=== PATIENT | female | born 1985 | race Caucasian/White ===

== ENCOUNTER 2018-05-12 12:09 | Outpatient (REF) | payer MEDICAID, SELFPAY ==
--- NOTE | 2018-05-12 11:30 | PAPFT_PTH ---
PATIENT: Philomena Romano LOC: [facility] U#:[id number] AGE/SX: 33/F ROOM: RE05/12/[address]: Katty Hutson NP : [id number] BED: DIS: 05/12/2018 SPEC #: [id number] RECD: 05/12/18 17:40 STATUS: WILMAN REKyrie #: [id number] PRAFUL: 05/12/18 11:[address]: Katty Hutson NP DEPT: [facility] Cytology RECD BY: Constance Barcenas ENTERED: 05/12/18 17:41 SP TYPE: PAPFT OTHR DR: Maximo Powell Tissues: 1 - CX/ENDOCX FOR PAP SMEARS Procedures: PAP THIN PREP/UVM Screening HPV DNA PROBE Comments: [id number]
[2018-05-13 16:36] LABS: Chlamydia Result Negative; GC Result Negative; Specimen Description SEE COMMENTS
== END 2018-05-12 12:29 ==
LOC: LBN 12:09
PROVIDERS: PCP Family Medicine; Visit Provider Nurse Practitioner Women's Health
DX: Z12.4 Encounter for screening for malignant neoplasm of cervix (principal); Z11.51 Encounter for screening for human papillomavirus (HPV); Z11.3 Encounter for screening for infections with a predominantly sexual mode of transmission
CPT/HCPCS: 87491; 87591; 88142; 87624

== ENCOUNTER 2018-09-28 06:53 | Emergency (ER) | payer MEDICAID, SELFPAY ==
[2018-09-28 07:01] VITALS: BP 110/68; PULSE 76; RESP 16; TEMP 36.6; O2SAT 99
--- NOTE | 2018-09-28 07:12 | W.ED.GENAD ---
Discharge Plan Disposition Patient Disposition: HOME Condition: Stable Discharge Details Chief Complaint: Orthopedic Clinical Impression: Overuse injury Primary Care Provider: Maximo Powell ED Provider: Declan Hutson Home Meds and New Rx's Prescriptions: No Action methadone 10 MG/ML concentrate 79 mg PO DAILY RF: 0 Discharge Instructions Additional Instructions: You can take 600mg ibuprofen every 6 hours for pain as needed if pain continues in a week see your primary care provider if you have fevers, redness spreading up the arm or severe worsening of pain return to the emergency department for reevaluation Stand Alone Forms: Work Release Medical Decision Making 33 yo female comes in with left wrist pain. She states the pain started after work last night where she was doing repetitive motion of twisting with the left hand. denies any trauma, no fevers, rashes. She has had medial wrist and hand pain since so came here. Has no obvious deformity, pain over medial wrist, no snuffbox tenderness, full rom of the wrist and hand with 2+ radial and ulnar pulses and cap refill less than 2 seconds. I suspect overuse injury from repetetive motion. Do not feel xrays indicated at this time given lack of trauma. No findings to suggest cellulitis or infected joint. Will place in splint for comfort and advised f/u with pcp if pain continues and return precautions given Differential Diagnosis strain,sprain, contusion, overuse HPI General Mode of arrival: ambulatory. Date/Time Provider Initiated Documentation: 09/28/18 07:06. Limitations to Documentation: no limitations. Information obtained by: patient. History of Present Illness 33 year old F presents to the emergency department with the chief complaint of left wrist pain, described as moderate, with intensity rated at 4. Quality is described as aching (throbbing), and is localized to the left and upper extremity. No relieving factors improve symptom(s), No exacerbating factors reported . Patient notes no other symptoms.. Patient did receive the following treatments prior to arrival, none Related Data Home Medications Medication Instructions Recorded Confirmed methadone 79 mg PO DAILY 08/15/13 05/12/18 Allergies Allergy/AdvReac Type Severity Reaction Status Date / Time acetaminophen [From Tylenol] Allergy unknown as Unverified 09/28/18 07:04 child General Stated Complaint: Orthopedic ORAL: 4 Review of Systems Review of Systems All systems reviewed & are unremarkable except as noted in HPI and below Constitutional Denies chills, Denies fever(s) and Denies weakness Eyes Denies loss of vision ENT Denies change in voice Cardiovascular Denies chest pain and Denies dyspnea Respiratory Denies cough and Denies dyspnea Gastrointestinal Denies abdominal pain, Denies nausea and Denies vomiting Genitourinary Denies dysuria Musculoskeletal Denies joint swelling Integumentary/Breasts Denies rash Neurologic Denies loss of vision and Denies weakness [facility] Medical History Methadone maintenance therapy patient (Acute) History of opioid abuse (Acute) Kidney calculus (Chronic) Surgical History History of tubal ligation (Chronic) Family History Mother Diabetes Pacemaker Social History Smoking and Tabacco status: Current every day alcohol intake: never substance use type: former substance user and other details: methadone clinic Female Reproductive History Menstrual Duration of menses: 6-7 days control method: permanent sterilization (2007) History History 2 Para 2 Hx # Term Pregnancies Multiple births Hx # Pregnancies Ectopic pregnancies AB induced Hx Number of Living Children AB spontaneous Exam Const General: no acute distress Orientation: alert HENMT Head: normal to inspection Ears: external ears normal General nose exam: external nose normal Mouth: moist mucous membranes Eyes General: appearance normal, both eyes and all related structures Neck Neck: normal visual inspection Resp Effort & Inspection: normal respiratory effort and able to speak in complete sentences Cardio Rate: regular rate Skin General skin exam: no rashes or lesions noted Neuro General: alert and oriented x3 Extrem General: normal to inspection Psych Mental Status: mental status grossly normal Course Vital Signs Temperature 36.6 C 09/28/18 07:01 Pulse 76 09/28/18 07:01 Respiratory Rate 16 09/28/18 07:01 Blood Pressure 110/68 09/28/18 07:01 Pulse Oximetry 99 09/28/18 07:01 Temperature 36.6 C 09/28/18 07:01 Temperature Source Skin 09/28/18 07:01 Pulse 76 09/28/18 07:01 Respiratory Rate 16 09/28/18 07:01 Respiratory Effort Non-Labored 09/28/18 07:01 Blood Pressure 110/68 09/28/18 07:01 Blood Pressure Position Sitting 09/28/18 07:01 Pulse Oximetry 99 09/28/18 07:01 Oxygen Delivery Method Room Air 09/28/18 07:01 Oxygen Flow Rate 0 09/28/18 07:01 Pain Level 7 09/28/18 07:05
--- NOTE | 2018-09-29 15:42 | NUR.NOTE ---
Nursing Note: Patient called stating that her employer needs to have a form filled out stating what she will be able to do when she returns to work. I consulted with Brooks Miguel NP in the ED and told the patient that we do not do these forms in the ED. She was given the phone number for [facility] and [facility]. Arely Ramey.
== END 2018-09-28 07:21 | disposition home or self-care (01) ==
PROVIDERS: Emergency Provider Emergency Medicine; PCP Family Medicine
DX: M25.532 Pain in left wrist (principal); X50.3XXA Overexertion from repetitive movements, initial encounter
CPT/HCPCS: 29125; 99283; 99282; L3908

== ENCOUNTER 2019-07-21 06:54 | Emergency (ER) | payer MEDICAID, SELFPAY ==
[2019-07-21 06:58] VITALS: BP 112/80; PULSE 62; RESP 16; TEMP 36.8; O2SAT 96
--- NOTE | 2019-07-21 07:16 | ED.GENADUL_ITS ---
Discharge Plan Disposition Patient Disposition: HOME Condition: Good Discharge Details Chief Complaint: DentalOral Clinical Impression: Dental infection, Acute gingivitis Primary Care Provider: None,None ED Provider: Yinka Suarez and New Rx's Prescriptions: New chlorhexidine gluconate 0.12 % mouthwash 15 ml MM BID Qty: 600 RF: 0 benzocaine 20 % gel 1 applic MM QID PRN (Reason: mouth irritation) Qty: 30 RF: 0 amoxicillin-pot clavulanate 875-125 mg tablet 1 tab PO BID Qty: 20 RF: 0 Continued methadone 10 MG/ML concentrate 79 mg PO DAILY RF: 0 Discharge Instructions Instructions: Dental Abscess (ED) Additional Instructions: Use ibuprofen and benzocaine as needed to help with pain. Chlorhexidine rinses as directed. Augmentin twice a day. Follow-up with dentistry, referred to sheet provided. Return to ED for high fever, facial pain swelling, difficulty breathing, inability to swallow. Medical Decision Making Patient with significant dental decay and gingival loss with necrotic tissue. Needs to see a dentist. In the meantime we will start on chlorhexidine rinses and Augmentin. Continue ibuprofen and mucosal benzocaine for pain relief. Return to ED for high fever, increased facial pain or swelling, difficulty breathing or inability to swallow. HPI General Mode of arrival: ambulatory . Date/Time Provider Initiated Documentation: 07/21/19 07:15 . Limitations to Documentation: no limitations . Information obtained by: patient and RN notes reviewed . HPI Narrative: Patient presents with lower dental pain which has been bothering her for the last 4 days. She has been using Orajel and ibuprofen. Pain continues to get worse. She only has the lower front teeth and these are severely decayed. There is no facial pain or swelling. There is no fever. No difficulty swallowing or breathing. Related Data Home Medications Medication Instructions Recorded Confirmed methadone 79 mg PO DAILY 08/15/13 07/21/19 amoxicillin-pot clavulanate 1 tab PO BID #20 tab 07/21/19 benzocaine 1 applic MM QID PRN #30 gm 07/21/19 chlorhexidine gluconate 15 ml MM BID #600 ml 07/21/19 Previous Rx's Medication Instructions Recorded amoxicillin-pot clavulanate 1 tab PO BID #20 tab 07/21/19 benzocaine 1 applic MM QID PRN #30 gm 07/21/19 chlorhexidine gluconate 15 ml MM BID #600 ml 07/21/19 Allergies Allergy/AdvReac Type Severity Reaction Status Date / Time acetaminophen [From Tylenol] Allergy unknown as Unverified 07/21/19 07:00 child General Stated Complaint: DentalOral ORAL: 5 Review of Systems Constitutional Constitutional: Denies fever(s) ENT Ears, Nose, Mouth, and Throat: Reports dental pain and Denies lip swelling Allergic/Immunologic Allergic/Immunologic: Denies lip swelling [facility] Medical History History of opioid abuse (Acute) Kidney calculus (Chronic) Methadone maintenance therapy patient (Acute) Surgical History History of tubal ligation (Chronic) Social History Smoking/Tobacco Use Status: Current every day Alcohol Intake: never Drug use: Current Sobriety Substance use type: former substance user and other Details: methadone clinic Do you feel safe in your relationship?: Yes Female Reproductive History Menstrual Duration of menses: 6-7 days control method: permanent sterilization (2007) History History 2 Para 2 Hx # Term Pregnancies Multiple births Hx # Pregnancies Ectopic pregnancies AB induced Hx Number of Living Children AB spontaneous Exam Const General: cooperative and comfortable Orientation: alert and oriented x3 HENMT Face and sinus: normal facial exam Mouth: lip normal, no drooling and no trismus Teeth and gingiva: gingiva abnormal and poor dentition Other: Upper dentures in place. Lower molars/premolars gone. Lower frontal teeth severely decayed with extensive gingival recession/erythema/necrotic tissue. Course Vital Signs Vital signs: Vital Signs Temperature 98.2 F 07/21/19 06:58 Pulse 62 07/21/19 06:58 Respiratory Rate 16 07/21/19 06:58 Blood Pressure 112/80 07/21/19 06:58 Pulse Oximetry 96 07/21/19 06:58 Temperature 98.2 F 07/21/19 06:58 Temperature Source Skin 07/21/19 06:58 Pulse 62 07/21/19 06:58 Respiratory Rate 16 07/21/19 06:58 Respiratory Effort 07/21/19 07:01 Blood Pressure 112/80 07/21/19 06:58 Blood Pressure Position Sitting 07/21/19 06:58 Pulse Oximetry 96 07/21/19 06:58 Oxygen Delivery Method Room Air 07/21/19 06:58 Oxygen Flow Rate 0 07/21/19 06:58 Pain Level 9 07/21/19 07:01
[2019-07-21] MEDS: Benzocaine 20% Gel 30 GM JAR MM (07:31)
== END 2019-07-21 07:49 | disposition home or self-care (01) ==
PROVIDERS: Emergency Provider Emergency Medicine
DX: R68.84 Jaw pain (principal); K05.00 Acute gingivitis, plaque induced; K04.7 Periapical abscess without sinus
CPT/HCPCS: 99283

== ENCOUNTER 2020-10-18 08:25 | Emergency (ER) | payer MEDICAID, SELFPAY ==
[2020-10-18 08:28] VITALS: BP 108/69; PULSE 93; RESP 20; TEMP 36.8; O2SAT 97
--- NOTE | 2020-10-18 08:45 | DI.RAD_ITS ---
EXAM: XR KNEE LT 4V+ CLINICAL HISTORY: fall/pain TECHNIQUE: COMPARISON: No exams were available for comparison FINDINGS: Five views were obtained. The lateral view shows an apparent joint effusion. No fracture is identif ied. IMPRESSION: RADIATION DOSE DELIVERED: Total DLP
--- NOTE | 2020-10-18 08:45 | DI.RAD_ITS ---
EXAM: XR ANKLE LT COMPLETE CLINICAL HISTORY: fall/twist TECHNIQUE: COMPARISON: No exams were available for comparison FINDINGS: Three views were obtained. The ankle mortise is well maintained. There is no evidence of acute frac ture or dislocation. IMPRESSION: RADIATION DOSE DELIVERED: Total DLP
--- NOTE | 2020-10-18 08:51 | W.ED.GENAD ---
Discharge Plan Disposition Patient Disposition: HOME Condition: Stable Discharge Details Clinical Impression: Ankle sprain Primary Care Provider: None,None ED Provider: Vlad Burgess Home Meds and New Rx's Prescriptions: New ibuprofen 800 mg tablet 800 mg PO TID PRNQty: 20 RF: 0 Continued methadone 10 MG/ML concentrate 95 mg PO DAILY RF: 0 Discontinued ibuprofen 400 mg Tablet 400 mg PO Q6H PRNRF: 0 Discharge Instructions Instructions: Ankle Sprain (ED) Additional Instructions: X-ray of ankle and knee are unremarkable. Wear walking boot and use crutches as needed, advance activity as tolerated. Ibuprofen as directed. Rest, elevate, cool compresses every 2 hours for 20 minutes. Please watch for new or worsening symptoms and return to the ER for any concerns. I do recommend following up with your primary care provider in the next 7-10 days for reevaluation. If symptoms are to persist outpatient referral to orthopedics may be required. Medical Decision Making 35-year-old female presents for left lower leg injury that occurred yesterday evening. She reports primarily left ankle pain but does report that the pain radiates up to her knee. Will obtain x-ray of her ankle but also of her need to rule out any potential tibial plateau fracture although low suspicion. Higher on the differential would be ankle sprain versus fracture. X-ray of ankle and knee read by me is unremarkable, confirmed by radiology. Discussed x-ray findings with patient. Discussed options. She is requesting something for pain and I prescribed her ibuprofen to go home. We will provide her with 60 IM Toradol, a tall walking boot and crutches. Patient comfortable with this plan and has no additional questions or concerns. Medical Records Medical records reviewed: Yes I reviewed the patient's medical records. Imaging Data Radiologic Study: Attestation: I personally reviewed and interpreted this imaging study as follows: Imaging: X-Ray Radiologist's impression: X-ray of left ankle and knee read by radiology as negative HPI General Mode of arrival: wheelchair. Date/Time Provider Initiated Documentation: 10/18/20 08:48. Limitations to Documentation: no limitations. Information obtained by: patient. HPI Narrative: This is a 35-year-old female, past medical history that includes history of opiate abuse, currently taking methadone, did receive her 95 mg just prior to arrival. She states that yesterday evening she was walking her dog down a hill, her dog pulled, causing her to fall. In the process she twisted her left ankle, reports that she needed to crawl back home and was unable to bear any weight. Patient reports that the pain is moderate to severe at rest, worse with movement or attempting to bear weight. She did take ibuprofen. She denies any other injuries. She denies striking her head, headache, LOC, neck pain, chest pain, abdominal pain, nausea, vomiting, numbness, tingling, weakness. She reports that the pain in her left ankle does radiate up to her knee although she is unable to reproduce pain by bending her knee or palpating her knee. She denies any pain in her foot. She denies any symptoms prior to the fall. Related Data Home Medications Medication Instructions Recorded Confirmed methadone 95 mg PO DAILY 08/15/13 10/18/20 ibuprofen 800 mg PO TID PRN #20 tab 10/18/20 Previous Rx's Medication Instructions Recorded ibuprofen 800 mg PO TID PRN #20 tab 10/18/20 Allergies Allergy/AdvReac Type Severity Reaction Status Date / Time acetaminophen [From Tylenol] Allergy unknown as Unverified 10/18/20 08:33 child General Stated Complaint: Orthopedic ORAL: 4 Review of Systems Constitutional Constitutional: Denies headache(s) and Denies weakness ENT Ears, Nose, Mouth, and Throat: Denies headache(s) Cardiovascular Cardiovascular: Denies chest pain Gastrointestinal Gastrointestinal: Denies abdominal pain, Denies nausea and Denies vomiting Musculoskeletal Musculoskeletal: Reports arthralgias, Reports joint swelling, Denies numbness, Reports stiffness and Denies tingling Integumentary/Breasts Skin/Breast: Denies erythema Neurologic Neurologic: Denies headache(s), Denies numbness, Denies tingling and Denies weakness [facility] Medical History (Updated 10/18/20 @ 09:52 by CATRACHITO Munoz) History of opioid abuse Kidney calculus Methadone maintenance therapy patient Surgical History History of tubal ligation Family History Mother , [place] Diabetes Pacemaker Social History Smoking/Tobacco Use Status: Current every day Tobacco Type: cigarettes Smoking risk assessment performed?: Yes Alcohol Intake: never Drug use: Current Sobriety Substance use type: former substance user and other Details: methadone clinic Do you feel safe at home: Yes Do you feel safe in your relationship?: Yes Female Reproductive History Menstrual Duration of menses: 6-7 days control method: permanent sterilization (2007) History History 2 Para 2 Hx # Term Pregnancies Multiple births Hx # Pregnancies Ectopic pregnancies AB induced Hx Number of Living Children AB spontaneous Exam Const General: cooperative, healthy appearing, comfortable and no acute distress Orientation: alert, awake and oriented x3 HENMT Head: normal to inspection, normocephalic and atraumatic Eyes General: appearance normal, both eyes and all related structures Conjunctivae: conjunctivae normal Neck Neck: normal visual inspection, trachea midline and supple Resp Effort & Inspection: normal respiratory effort and able to speak in complete sentences Cardio Rate: regular rate Rhythm: regular rhythm Skin General skin exam: no rashes or lesions noted Neuro General: patient alert, patient awake, patient oriented x3, moves all extremities and no focal motor deficits Cognition: normal cognition Speech: speech normal Motor: muscle tone normal throughout Sensory Exam: no sensory deficits noted Extrem General: capillary refill normal Right upper extremity: normal to inspection and full ROM Left upper extremity: normal to inspection and full ROM Right lower extremity: normal to inspection, full ROM and normal capillary refill Left lower extremity: normal capillary refill, hip/thigh Details: normal to inspection and normal ROM; no tenderness and no swelling, knee Details: normal to inspection and normal ROM; no tenderness and no swelling, lower leg Details: normal to inspection, ankle Details: tenderness, swelling, abnormal ROM and ecchymosis; no crepitus and foot Details: normal capillary refill, abnormal to inspection, toes with normal ROM and ecchymosis Other: Left ankle with diffuse lateral swelling and tenderness. This area is also associate with ecchymosis that extends to the dorsal aspect of the proximal foot. Skin is intact. Neuro, vascular, tendon intact. No obvious deformity. Perkins sign is normal. Patient is able to partly plantar and dorsiflex the foot however limited range of motion in all directions secondary to discomfort Psych Appearance: grossly normal Mental Status: mental status grossly normal Course Vital Signs Vital signs: Vital Signs Temperature 36.8 C 10/18/20 08:28 Pulse 93 H 10/18/20 08:28 Respiratory Rate 20 10/18/20 08:28 Blood Pressure 108/69 10/18/20 08:28 Pulse Oximetry 97 10/18/20 08:28 Temperature 36.8 C 10/18/20 08:28 Temperature Source Skin 10/18/20 08:28 Pulse 93 H 10/18/20 08:28 Respiratory Rate 20 10/18/20 08:28 Respiratory Effort Non-Labored 10/18/20 08:35 Blood Pressure 108/69 10/18/20 08:28 Blood Pressure Position Sitting 10/18/20 08:28 Pulse Oximetry 97 10/18/20 08:28 Oxygen Delivery Method Room Air 10/18/20 08:28 Oxygen Flow Rate 0 10/18/20 08:28 Pain Level 10 10/18/20 08:28
[2020-10-18] MEDS: Ketorolac 60 MG/2 ML VIAL IM (09:48)
[2020-10-18 10:13] VITALS: BP 97/52; PULSE 68; RESP 18; O2SAT 94
== END 2020-10-18 10:47 | disposition home or self-care (01) ==
PROVIDERS: Emergency Provider Physician Assistant
DX: S93.492A Sprain of other ligament of left ankle, initial encounter (principal); M25.562 Pain in left knee; W17.81XA Fall down embankment (hill), initial encounter; X50.9XXA Other and unspecified overexertion or strenuous movements or postures, initial encounter; Y93.K1 Activity, walking an animal
CPT/HCPCS: 29515; 96372; 99284; 73564; 73610; J1885

== ENCOUNTER 2022-07-16 09:00 | Emergency (ER) | payer MEDICAID, SELFPAY ==
[2022-07-16] VITALS (9 sets, daily range): BP systolic 87–155; BP diastolic 38–133; PULSE 49–76; RESP 16; TEMP 36.4; O2SAT 93–99
--- NOTE | 2022-07-16 09:07 | ED.GENADUL_ITS ---
Discharge Plan Disposition Patient Disposition: Home Condition: Improving Discharge Details Clinical Impression: Walking pneumonia, Renal colic on left side, Extravasation of intravenous contrast medium Primary Care Provider: None,None ED Provider: Hector Salguero Home Meds and New Rx's Prescriptions: New amoxicillin-pot clavulanate 875-125 mg tablet 1 tab PO BID 10 Days Qty: 20 0RF Continued methadone 10 MG/ML concentrate 60 mg PO DAILY ibuprofen 800 mg tablet 800 mg PO TID PRNQty: 20 0RF Discharge Instructions Instructions: Renal Colic (ED) Additional Instructions: Please follow-up with your primary care doctor in [facility] for recheck. Our care managers will work to get you an appointment. As we discussed, there was a question of very small pancreatic cyst in the tail of the pancreas for which it is recommended you have a follow-up CAT scan or MRI performed in the next 6 months. Take antibiotics as prescribed. As we discussed, return if you have persistent discomfort, develop shortness of breath or any other acute concerns. A small pulmonary embolism could not be ruled out due to the lack of adequate contrast administered during ear CT scan as we discussed. Apply ice to area of left arm to reduce discomfort. Rest today. Return if you develop a fever, redness to the left arm, or any other acute concern. Medical Decision Making 37-year-old female presents from home with 2 days of left flank pain that seems to radiate to her abdomen. She also describes some mild increase the pain with deep breath. She does not have chest pain or shortness of breath. No leg pain or swelling. She has a history of previous kidney stones. She is afebrile, pleasant and well-appearing. Exam reveals left flank and left upper quadrant tenderness peer differential diagnosis includes renal colic, py elonephritis, must consider PE. Patient referred for laboratory testing, given parenteral analgesia. Her white blood cell count is 7, hematocrit 46, platelets 291. D-dimer elevated at 1414. BUN 13, creatinine 0.7. Urinalysis with blood and white blood cells present. Patient referred for CT imaging. Given the elevated D-dimer we had discussed contrast-enhanced study including chest images. While in the CT suite patient had extravasation of contrast into her left humerus. This was confirmed by humerus XR. Cold compress was placed to area. Patient subsequently declined further IV contrast-enhanced studies. She was referred for a noncontrast renal colic CT; this notes infiltrate left lung base. There is note of renal lithiasis. See the formal report. Patient improved and wishes to follow-up with her primary care in [place]. We will treat her for occult pneumonia. She is stable and improving. We discussed the limits of evaluation given her reluctance to have repeat CT imaging with contrast; she will return if not improving. HPI General Mode of arrival: ambulatory . Date/Time Provider Initiated Documentation: 07/16/22 09:00 . Limitations to Documentation: no limitations . Information obtained by: patient . History of Present Illness 37 year old F presents to the emergency department with the chief complaint of Left flank pain since yesterday, described as moderate and similar to prior episodes, Quality is described as dull and constant, Patient abdomen. Patient started experiencing this hour(s) and it has been constant. No relieving factors improve symptom(s), No exacerbating factors reported . Patient notes denies fever/chills, rash and weakness. Patient did receive the following treatments prior to arrival, none Related Data Home Medications Medication Instructions Recorded Confirmed methadone 10 mg/mL oral concentrate 60 mg PO DAILY 08/15/13 07/16/22 ibuprofen 800 mg tablet 800 mg PO TID PRN #20 tabs 10/18/20 07/16/22 amoxicillin 875 mg-potassium 1 tab PO BID 10 days #20 tabs 07/16/22 clavulanate 125 mg tablet Previous Rx's Medication Instructions Recorded ibuprofen 800 mg tablet 800 mg PO TID PRN #20 tabs 10/18/20 amoxicillin 875 mg-potassium 1 tab PO BID 10 days #20 tabs 07/16/22 clavulanate 125 mg tablet Allergies Allergy/AdvReac Type Severity Reaction Status Date / Time acetaminophen [From Tylenol] Allergy unknown as Unverified 07/16/22 09:10 child General ORAL: 4 Review of Systems Narrative: Continues on methadone maintenance, no recent illness, no fall or injury, denies rash. 8 systems were reviewed and otherwise negative PFSH All Active Problems (Updated 07/16/22 @ 13:02 by Hector Salguero MD) Ankle sprain (Acute) Walking pneumonia (Acute) Renal colic on left side (Acute) Extravasation of intravenous contrast medium (Acute) Methadone maintenance therapy patient (Acute) History of opioid abuse (Acute) Medical History (Updated 12/29/22 @ 13:02 by Hector Salguero MD) Kidney calculus Surgical History History of tubal ligation Family History Mother , [place] Diabetes Pacemaker Social History Smoking/Tobacco Use Status: Current every day Tobacco Type: cigarettes Smoking risk assessment performed?: Yes Alcohol Intake: never Drug use: Current Sobriety Substance use type: former substance user and other Details: methadone clinic Do you feel safe at home: Yes Do you feel safe in your relationship?: Yes Female Reproductive History Menstrual Duration of menses: 6-7 days control method: permanent sterilization (2007) History History 2 Para 2 Hx # Term Pregnancies Multiple births Hx # Pregnancies Ectopic pregnancies AB induced Hx Number of Living Children AB spontaneous Exam Narrative Exam Narrative: GEN: awake, alert, oriented 3. Pleasant, well groomed, interactive. HEAD: Normocephalic, atraumatic ENT: Mucous membranes moist, oropharynx unremarkable, External ear exam unremarkable EYES: PERRL, EOMI NECK: Full ROM, no JORGE, no menigismus CHEST/RESP: Nontender, clear to auscultation bilateral, no wheeze/rhonchi/rales CARDIOVASCULAR: RRR, no murmur, rub severiano. 2+ Rad pulse bilateral ABDOMEN: Soft, left upper quadrant tender without rebound or guarding, no mass. +Bowel sounds, left flank tender to percussion EXT: Full ROM, no edema, no rash Neuro: Grossly normal neurologic exam, conversant, interactive. Psych: Speech fluent, thoughts congruent, affect normal
[2022-07-16 09:18] LABS: Bilirubin Negative (Negative); Blood Trace-lysed (Negative); Clarity Clear (Clear); Glucose Negative (Negative); Ketones Negative (Negative); Leukocyte Esterase Small (Negative); Nitrite Negative (Negative); Specific Gravity >= 1.030 (1.005-1.025); Urobilinogen 0.2 EU/dL (Up TO 0.2)
[2022-07-16 09:24] LABS: Bacteria Moderate HPF (Negative); C & S Indicated? Yes; Casts Negative LPF (Negative); Crystals Negative HPF (Negative); Epithelial Cells Rare HPF (Negative); Mucus Negative (Negative); Other Cells Negative (Negative)
[2022-07-16] MEDS: Ketorolac 15 MG/ML VIAL IVP (10:07)
[2022-07-16] MEDS: Normal Saline 1,000 ML 1000 ML IV (10:07)
[2022-07-16 10:16] LABS: Abs Immature Grans 0.03 10^3/uL (0.0-0.06); Absolute Basophil Count 0.04 10^3/uL (0.0-0.2); Absolute Eosinophil Count 0.76 10^3/uL (0.0-0.7); Absolute Lymphocyte Count 1.84 10^3/uL (1.2-3.4); Absolute Monocyte Count 0.53 10^3/uL (0.1-0.8); Absolute Neutrophil Count 4.69 10^3/uL (1.2-6.7); Basophils % 0.5; Eosinophils % 9.6; HCT 46.4 % (36.0-46.0); HGB 14.8 g/dL (11.2-15.7); Immature Grans % 0.4; Lymphocytes % 23.3; MCH 26.9 pg (27.0-33.0); MCHC 31.9 % (32.0-36.0); MCV 84 fL (80-95); MPV 10.1 fL (8.0-11.0); Monocytes % 6.7; Neutrophils % 59.5; Platelet Count 291 10^3/uL (130-400); RBC 5.51 10^6/uL (3.93-5.22); RDW 13.4 % (11.7-14.6); RDW-SD 41.6 fL; WBC 7.89 10^3/uL (4.4-10.8)
[2022-07-16 10:34] LABS: ALT 34 U/L (14-59); AST 24 U/L (15-37); Albumin 3.9 g/dL (3.4-5.0); Alkaline Phosphatase 129 U/L (46-116); Anion Gap 5.1 mmol/L (3-11); BUN 13 mg/dL (7-18); Bilirubin, Total 0.2 mg/dL (0.2-1.0); CO2 32.9 mmol/L (21.0-32.0); CREATININE 0.7 mg/dL (0.55-1.02); Calcium 9.2 mg/dL (8.5-10.1); Chloride 99 mmol/L (98-107); Estimated GFR 112.75 (mL/min/1.73m2); Glucose 83 mg/dL (74-106); Potassium 3.8 mmol/L (3.5-5.1); Sodium 137 mmol/L (136-145); Total Protein 9.2 g/dL (6.4-8.2)
[2022-07-16 10:43] LABS: D-Dimer 1414 ng/mlFEU (<500)
[2022-07-16] MEDS: HYDROmorphone 2 MG/ML SYR 1 MG IVP (11:24)
--- NOTE | 2022-07-16 11:30 | DI.RAD_ITS ---
Exam(s) XR HUMERUS LT EXAM: XR HUMERUS LT CLINICAL HISTORY: s/p infiltration pain. TECHNIQUE: 2D digital imaging was performed. COMPARISON: CR RIGHT FOREARM from 03/06/2013 FINDINGS: Single view: There is a prominent amount of extravasated intravenous contrast in the upper left arm between the el bow level and axilla. IMPRESSION: As above. Result called by myself to the ER physician DATA REPOSITORY: RADIATION DOSE DELIVERED:
[2022-07-16] MEDS: oxyCODONE 10 MG TAB PO (12:07)
--- NOTE | 2022-07-16 12:35 | DI.CT_ITS ---
Exam(s) CT RENAL COLIC WO EXAM: CT RENAL COLIC WO CLINICAL HISTORY: L flank pain. TECHNIQUE: Imaging Protocol: Axial computed tomography images with coronal and sagittal reformatted images were created and reviewed CONTRAST MATERIAL: Intravenous: none Oral: None COMPARISON: CT CT CHEST PE ABD PELVIS W from 07/16/2022 FINDINGS: VISUALIZED LUNG BASES: Mild infiltrate noted in the posterior basal segment of the left lower lobe an d milder infiltrate in the posterior basal segment of the right lower lobe.zx no ground-glass infiltr ates.. ABDOMEN: There is no ascites. LIVER: There are no obvious focal hepatic lesions evident of this noninfused study. GALLBLADDER/BILIARY: Gallbladder is not seen and presumed to be surgically absent. CBD diameter is p rominent, measuring 1 cm. There is a small calcification in what appears to be the duodenum or duode nal wall at this level, this measuring 3 millimeters. Cannot exclude the possibility of tiny gallsto ne in the duodenal wall at this level. PANCREAS: There is no mass in the pancreatic head nor dilatation pancreatic duct. There is, however, a subtle hypodense area in the pancreatic tail region measuring 8 x 5 millimeters, this at the junct ion of the body and tail the pancreas (series 2/image 43). Pancreatic duct is not dilated. There is no peripancreatic fluid. SPLEEN: Spleen size is upper normal. No obvious intrasplenic masses. ADRENALS: There are no significant adrenal masses. KIDNEYS:There is a benign cyst in the lateral cortex of the left kidney which measures 1.5 x 1.5 cm. Another slightly smaller cyst is seen in the anterior cortex of the left kidney. Smaller cyst in th e right kidney. No solid renal masses. No solid renal masses. It is difficult to determine if ther e calculi in the calices due to the fact that there is some excreted IV contrast in both kidneys. Ne vertheless, there is no hydronephrosis nor hydroureter on either side. No obvious abnormality in the urinary bladder.. ABDOMINAL AORTA: Abdominal aorta is not enlarged. LYMPH NODES: There is no retroperitoneal nor paraaortic adenopathy. ABDOMINAL WALL: No evidence of significant anterior abdominal wall nor inguinal hernia. GI: There is no evidence of bowel obstruction, free air, nor abscess. PELVIS: LYMPH NODES: There is no intrapelvic nor inguinal adenopathy. GI: No evidence of appendicitis.No evidence of sigmoid diverticulitis. URINARY BLADDER: No calculi nor obvious masses evident REPRODUCTIVE: Uterus size normal. Ovaries are not identified as independent structures. No abnormal adnexal masses. No free fluid in the pelvis. OSSEOUS: No significant osseous lesions. No fractures. The sacroiliac joints appear unremarkable. IMPRESSION: 1. Gallbladder is not seen and presumed to be surgically absent. The CBD is dilated measuring 1 cm. There is no mass the pancreatic head but there is a small calcific density in the duodenum at this l evel, possibly recently passed 3 millimeter gallstone. Correlation with blood work recommended. 2. Subtle hypodense area at the junction of the body and tail the pancreas, possibly significant. Re commend follow-up pancreatic protocol MRI/MRCP. 3. Benign renal cysts, largest measuring 1.5 x 1.5 cm. No solid renal masses. Although there are no obvious calculi, please note that the IV contrast secreted at the level of the renal calices and inf undibuli prevent visualization of small calculi. 4. no abnormal masses in the pelvis. Uterus normal size. Ovaries not identified as separate from th e opacified bowel loops in the pelvis. Mild infiltrate noted in both lung bases. Left slightly more so than right. Findings discussed with ER physician RADIATION DOSE DELIVERED: 917.48mGy.cm Total DLP DATA REPOSITORY: All CT scans at this facility are submitted to the National Radiology Data Registry (NRDR) Dose Index Registry (DIR) with the [employer] ([employer]). RADIATION OPTIMIZATION: All CT scans at this facility use at least one of these dose optimization te chniques: automated exposure control; mA and/or kV adjustment per patient size (includes targeted exa ms where dose is matched to clinical indication); or iterative reconstruction.
--- NOTE | 2022-07-16 15:26 | NUR.NOTE ---
Nursing Note: Referral given to Care management to PCP for follow up pneumonia in 1 to 2 weeks.
--- NOTE | 2022-07-16 15:57 | CMACTNOTE_ITS ---
- If Service Date Differs Date of service: 07/16/22 Time of Service: 15:57 Care Management Activity Note Philomena is seen in the ED for walking pneumonia. At the request of ED provider, BEN contacts the [facility] where Philomena receives her care ([facility], [address] [place] [address], tel. [phone], fax [phone]) and requests they outreach directly to Philomena to schedule a follow up appointment in 1 - 2 weeks. She has Medicaid for insurance.
--- NOTE | 2022-07-16 15:57 | PDOC.ERCMACT ---
- If Service Date Differs Date of service: 07/16/22 Time of Service: 15:57 Care Management Activity Note Philomena is seen in the ED for walking pneumonia. At the request of ED provider, BEN contacts the [facility] where Philomena receives her care ([facility], [address] [place] [address], tel. [phone], fax [phone]) and requests they outreach directly to Philomena to schedule a follow up appointment in 1 - 2 weeks. She has Medicaid for insurance.
== END 2022-07-16 13:20 | disposition home or self-care (01) ==
PROVIDERS: Emergency Provider Emergency Medicine
DX: N23 Unspecified renal colic (principal); J18.9 Pneumonia, unspecified organism; T80.818A Extravasation of other vesicant agent, initial encounter; R79.1 Abnormal coagulation profile; R91.8 Other nonspecific abnormal finding of lung field; Z98.51 Tubal ligation status; Z87.442 Personal history of urinary calculi
CPT/HCPCS: 36415; 80053; 81025; 87077; 96361; 96374; 96375; 99284; 73060; 74176; 81003; 81015; 85025; 85379; 87086; 87186; J1170; J1885; J3490

== ENCOUNTER 2022-08-30 21:43 | Emergency (ER) | payer MEDICAID, SELFPAY ==
[2022-08-30 22:03] VITALS: BP 103/75; PULSE 108; RESP 20; TEMP 36.8; O2SAT 97
--- NOTE | 2022-08-30 22:24 | ED.GENADUL_ITS ---
Discharge Plan Disposition Patient Disposition: Home Condition: Stable Discharge Details Clinical Impression: Nausea & vomiting Primary Care Provider: None,None ED Provider: Declan Hutson Home Meds and New Rx's Prescriptions: New ondansetron 4 mg tablet,disintegrating 4 mg PO Q8H PRN (Reason: nausea and vomiting) Qty: 30 0RF Discharge Instructions Instructions: Acute Nausea and Vomiting (ED) Additional Instructions: follow up with your primary care provider if symptoms continue if you feel more ill, have severe worsening pain or new symptoms such as difficulty breathing Medical Decision Making 37 yo female who was previously on methadone but states tapered off of it and last took it 10 days ago who has had a tubal ligation comes in with n/v since 3am this morning. Denies any fevers, chills, chest pain, abdomen pain, dyspnea. She denies drug use or alcohol use. She arrives stable speaking clearly in no distress. She has clear lungs, soft nontender abdomen. Given lack of abdominal pain or tenderness doubt surgical pathology, will treat with ivf and zofran and check cmp and reassess. pt stable, has mild leukocytosis otherwise benign labs, noabdominal tenderness on repeat exam. Still has nausea, will trial droperidol pt ambulating in no distress requesting d/c, still no abdominal tenderness and tolerating po. Instructed to f/u with her pcp, return precautions given Differential Diagnosis Differential Diagnosis: withdrawal, gastrotenteritis, food illness Lab Data Lab results reviewed: Yes I reviewed the patient's lab results. HPI General Mode of arrival: ambulatory . Date/Time Provider Initiated Documentation: 08/30/22 21:43 . Limitations to Documentation: no limitations . Information obtained by: patient . History of Present Illness 37 year old F presents to the emergency department with the chief complaint of n/v, described as moderate, Patient started experiencing this hour(s) (15) and it has been constant. No relieving factors improve symptom(s), No exacerbating factors reported . Patient notes no other symptoms.; denies fever/chills and nausea/vomiting. Patient did receive the following treatments prior to arrival, none Related Data Home Medications Medication Instructions Recorded Confirmed ondansetron 4 mg disintegrating 4 mg PO Q8H PRN nausea and 08/31/22 tablet vomiting #30 tabs Previous Rx's Medication Instructions Recorded ondansetron 4 mg disintegrating 4 mg PO Q8H PRN nausea and 08/31/22 tablet vomiting #30 tabs Allergies Allergy/AdvReac Type Severity Reaction Status Date / Time acetaminophen [From Tylenol] Allergy unknown as Unverified 07/16/22 09:10 child General Stated Complaint: Nausea/Vomit/Diar ORAL: 3 Review of Systems All systems reviewed & are unremarkable except as noted in HPI and below Constitutional Constitutional: Denies chills, Denies fever(s) and Denies weakness Cardiovascular Cardiovascular: Denies chest pain and Denies dyspnea Respiratory Respiratory: Denies cough and Denies dyspnea Gastrointestinal Gastrointestinal: Denies abdominal pain Integumentary/Breasts Skin/Breast: Denies rash Neurologic Neurologic: Denies weakness PFSH All Active Problems (Updated 08/30/22 @ 23:42 by Declan Hutson MD) Ankle sprain (Acute) Nausea & vomiting (Acute) Methadone maintenance therapy patient (Acute) History of opioid abuse (Acute) Medical History (Updated 08/30/22 @ 23:42 by Declan Hutson MD) Kidney calculus Surgical History History of tubal ligation Family History Mother , [place] Diabetes Pacemaker Social History Smoking/Tobacco Use Status: Current every day Tobacco Type: cigarettes Smoking risk assessment performed?: Yes Alcohol Intake: never Drug use: Current Sobriety Substance use type: former substance user and other Details: methadone clinic Do you feel safe at home: Yes Do you feel safe in your relationship?: Yes Female Reproductive History Menstrual Duration of menses: 6-7 days control method: permanent sterilization (2007) History History 2 Para 2 Hx # Term Pregnancies Multiple births Hx # Pregnancies Ectopic pregnancies AB induced Hx Number of Living Children AB spontaneous Exam Const General: no acute distress Orientation: alert HENMT Head: normal to inspection Ears: external ears normal General nose exam: external nose normal Mouth: moist mucous membranes Eyes General: appearance normal, both eyes and all related structures Neck Neck: normal visual inspection Resp Effort & Inspection: normal respiratory effort and able to speak in complete sentences Cardio Jugular venous pressure: no JVD Rate: regular rate Heart Sounds: no murmurs GI Palpation: soft and nontender Skin General skin exam: no rashes or lesions noted Neuro General: patient alert and patient oriented x3 Extrem General: normal to inspection Psych Mental Status: mental status grossly normal Course Vital Signs Vital signs: Vital Signs Temperature 36.8 C 08/30/22 22:03 Pulse 108 H 08/30/22 22:03 Respiratory Rate 20 08/30/22 22:03 Blood Pressure 103/75 08/30/22 22:03 Pulse Oximetry 97 08/30/22 22:03 Temperature 36.8 C 08/30/22 22:03 Temperature Source Oral 08/30/22 22:03 Pulse 108 H 08/30/22 22:03 Respiratory Rate 20 08/30/22 22:03 Blood Pressure 103/75 08/30/22 22:03 Blood Pressure Position Sitting 08/30/22 22:03 Pulse Oximetry 97 08/30/22 22:03 Oxygen Delivery Method Room Air 08/30/22 22:03 Oxygen Flow Rate 0 08/30/22 22:03 Pain Level 10 08/30/22 22:03
[2022-08-30 22:39] LABS: Abs Immature Grans 0.06 10^3/uL (0.0-0.06); Absolute Basophil Count 0.03 10^3/uL (0.0-0.2); Absolute Lymphocyte Count 1.84 10^3/uL (1.2-3.4); Absolute Monocyte Count 0.68 10^3/uL (0.1-0.8); Basophils % 0.2; Eosinophils % 0.1; HCT 47.3 % (36.0-46.0); HGB 15.4 g/dL (11.2-15.7); Immature Grans % 0.4; Lymphocytes % 12.9; MCH 26.8 pg (27.0-33.0); MCHC 32.6 % (32.0-36.0); MCV 82 fL (80-95); MPV 9.9 fL (8.0-11.0); Monocytes % 4.8; Neutrophils % 81.6; Platelet Count 383 10^3/uL (130-400); RBC 5.75 10^6/uL (3.93-5.22); RDW 14.4 % (11.7-14.6); RDW-SD 42.7 fL; WBC 14.24 10^3/uL (4.4-10.8)
[2022-08-30 22:43] LABS: Absolute Eosinophil Count 0.01 10^3/uL (0.0-0.7); Absolute Neutrophil Count 11.62 10^3/uL (1.2-6.7)
[2022-08-30 22:59] LABS: ALT 36 U/L (14-59); AST 19 U/L (15-37); Albumin 4.5 g/dL (3.4-5.0); Alkaline Phosphatase 156 U/L (46-116); Anion Gap 11.5 mmol/L (3-11); BUN 13 mg/dL (7-18); Bilirubin, Total 0.4 mg/dL (0.2-1.0); CO2 25.5 mmol/L (21.0-32.0); CREATININE 0.9 mg/dL (0.55-1.02); Chloride 103 mmol/L (98-107); Glucose 147 mg/dL (74-106); Magnesium 2.1 mg/dL (1.8-2.4); Potassium 3.5 mmol/L (3.5-5.1); Sodium 140 mmol/L (136-145); Total Protein 9.7 g/dL (6.4-8.2)
[2022-08-30 23:03] LABS: Calcium 9.9 mg/dL (8.5-10.1)
[2022-08-30] MEDS: Ondansetron 4 MG/2 ML VIAL IVP (23:14)
[2022-08-30] MEDS: Normal Saline 1,000 ML 1000 ML IV (23:15)
[2022-08-30] MEDS: Ondansetron O.D.T. 4 MG TABEF (23:15)
[2022-08-31] MEDS: Droperidol 5 MG/2 ML VIAL 2.5 MG IVP (00:02)
== END 2022-08-31 00:38 | disposition home or self-care (01) ==
PROVIDERS: Emergency Provider Emergency Medicine
DX: R11.2 Nausea with vomiting, unspecified (principal); D72.829 Elevated white blood cell count, unspecified; R11.0 Nausea; Z98.51 Tubal ligation status; Z87.442 Personal history of urinary calculi
CPT/HCPCS: 80053; 96361; 96374; 96375; 99284; 83735; 85025; J1790; J2405